=== PATIENT | male | born 1940 | race Caucasian/White ===

== ENCOUNTER 2025-09-27 05:49 | Inpatient (IN) | payer MEDICARE, OTHER ==
[2025-09-27] VITALS (14 sets, daily range): BP systolic 98–152; BP diastolic 62–86; TEMP 98.2–98.6; O2SAT 85–98
[~2025-09-27] VITALS: Ht 167.6 cm; Wt 76.2 kg
[2025-09-27 06:36] LABS: PLATELET COUNT (AUTO) 146 K/uL (150-450); RED CELL DISTRIBUTION WIDTH 14.6 % (11.5-15.0); WHITE BLOOD COUNT (AUTO) 18.0 K/uL (4.3-11.0)
[2025-09-27 06:45] LABS: CALCIUM, SERUM 9.3 mg/dL (8.5-10.1); CREATININE 2.5 mg/dL (0.6-1.3); SODIUM SERUM 134 mmol/L (136-145); UREA NITROGEN, BLOOD 65 mg/dL (7-18)
[2025-09-27 07:07] LABS: ASPARTATE AMINOTRANSFERASE 773 U/L (15-37); NT-PRO BNP 8625 pg/mL (0-125); TOTAL PROTEIN, SERUM 7.9 g/dL (6.4-8.2)
[2025-09-27] MEDS: PIPERACILLIN /TAZOBACTAM 3.375 G in IV D5W 50 ML IV ONE (07:30)
[2025-09-27] MEDS: SODIUM POLYSTYRENE SULFONATE 15 G/60 ML BOTTLE PO ONE (07:30)
[2025-09-27] MEDS: ASPIRIN 325 MG TABLET PO ONE (07:30)
[2025-09-27] MEDS: SODIUM BICARBONATE SYR 50 MEQ/50 ML DISP.SYRIN IV ONE (07:30)
[2025-09-27] MEDS: IV NS 0.9% 500 ML BAG IV ONE (07:30)
[2025-09-27] MEDS ORDERED: SODIUM BICARBONATE SYR 50 MEQ/50 ML DISP.SYRIN ONE (07:36)
[2025-09-27] MEDS ORDERED: SODIUM POLYSTYRENE SULFONATE 15 G/60 ML BOTTLE ONE (07:36)
[2025-09-27] MEDS ORDERED: ASCO100058 PO (07:38)
[2025-09-27] MEDS ORDERED: MULT-213 PO (07:38)
[2025-09-27] MEDS: ALBUTEROL FS 2.5 MG/3 ML VIAL.NEB NEB ONE (07:42)
[2025-09-27] MEDS ORDERED: ALBUTEROL FS 2.5 MG/3 ML VIAL.NEB ONE (07:45)
[2025-09-27] MEDS: VANCOMYCIN 1 GM in IV D5W 250 ML IV ONE (07:45)
[2025-09-27 08:00] LABS: INR 1.5 (0.91-1.10)
[2025-09-27 08:04] LABS: LACTIC ACID 4.3 mmol/L (0.4-2.0)
[2025-09-27] MEDS: ONDANSETRON HCL/PF - ER 4 MG/2 ML VIAL IV ONE (08:49)
[2025-09-27] MEDS ORDERED: ONDANSETRON HCL/PF 4 MG/2 ML VIAL ONE (08:49)
[2025-09-27 09:37] LABS: RED BLOOD CELL COUNT(AUTO) 4.66 MIL/uL (4.5-6.0)
[2025-09-27] MEDS ORDERED: Z GUARD REMEDY 4 OZ OINT TP PRN (10:00)
[2025-09-27] MEDS ORDERED: MAG HYDROX/AL HYDROX/SIMETH 30 ML UDC PO PRN (10:00)
[2025-09-27] MEDS ORDERED: MAGNESIUM HYDROXIDE 30 ML UDC PO PRN (10:00)
[2025-09-27] MEDS ORDERED: DOSING PER PHARMACY-ZOSYN IV 1 EA EA XX PRN (10:00)
[2025-09-27] MEDS ORDERED: DEXTROSE 50%-WATER 50 ML DISP.SYRIN IV PRN (10:00)
[2025-09-27] MEDS ORDERED: ACETAMINOPHEN 325 MG TABLET PO PRN (10:00)
[2025-09-27] MEDS ORDERED: ONDANSETRON HCL/PF 4 MG/2 ML VIAL IVP PRN (10:00)
[2025-09-27] MEDS: ASPIRIN 81 MG TAB.CHEW PO SCH (11:33)
[2025-09-27] MEDS: BUMETANIDE INJ 8 MG in IV NS 0.9% 48 ML IV ONE (11:34)
[2025-09-27] MEDS: PANTOPRAZOLE 40 MG TABLET.DR PO SCH (11:34)
[2025-09-27] MEDS: HEPARIN SODIUM, PORCINE 5000 UNITS/1 ML VIAL IV ONE (12:06)
[2025-09-27] MEDS: HEPARIN INFUSION/D5W 500 ML IV PRN (12:07)
[2025-09-27] MEDS: BLOOD SUGAR DIAGNOSTIC 1 EACH STRIP IN SCH (12:29)
[2025-09-27 12:33] LABS: CALCIUM, SERUM 9.0 mg/dL (8.5-10.1); CREATININE 2.3 mg/dL (0.6-1.3); SODIUM SERUM 135.0 mmol/L (136-145); UREA NITROGEN, BLOOD 67.0 mg/dL (7-18)
[2025-09-27] MEDS: ZOSYN IVPB 2.25 G in IV D5W 50ml IV SCH (13:20)
[2025-09-27] MEDS: INSULIN REGULAR, HUMAN 100 UNIT/ML 3 ML VIAL SQ PRN (21:48)
[2025-09-27 22:12] LABS: APPEARANCE,URINE CLEAR (CLEAR)
[2025-09-27 22:13] LABS: BLOOD, URINE TRACE Ery/uL (NEGATIVE); LEUKOCYTE ESTERASE ,URINE NEGATIVE (NEGATIVE); NITRITE, URINE NEGATIVE (NEGATIVE); UGLUCOSE NEGATIVE (NEGATIVE)
[2025-09-27 22:16] LABS: ADD URINE CULTURE NO; CREATININE, URINE 38.8 MG/DL (30.0-125.0); SQUAMOUS EPITHELIAL CELL,UR 0-2 /HPF (None Seen); URINE SODIUM, RANDOM 53.0 mmol/l (40-220); URINE TOTAL PROTEIN 6.1 mg/dL (0-11.9)
[2025-09-27 23:27] LABS: EOSINOPHIL,URINE None Seen
[2025-09-28] VITALS (24 sets, daily range): BP systolic 91–148; BP diastolic 47–123; TEMP 96.5–98; O2SAT 86–98
[2025-09-28 02:15] LABS: PLATELET COUNT (AUTO) 135 K/uL (150-450); RED BLOOD CELL COUNT(AUTO) 4.45 MIL/uL (4.5-6.0); RED CELL DISTRIBUTION WIDTH 14.7 % (11.5-15.0); WHITE BLOOD COUNT (AUTO) 15.6 K/uL (4.3-11.0)
[2025-09-28 02:34] LABS: ASPARTATE AMINOTRANSFERASE 493 U/L (15-37); CALCIUM, SERUM 8.9 mg/dL (8.5-10.1); CREATINE KINASE, TOTAL 830 U/L (39-308); CREATININE 1.9 mg/dL (0.6-1.3); PHOSPHORUS 4.7 mg/dL (2.5-4.9); SODIUM SERUM 134 mmol/L (136-145); TOTAL PROTEIN, SERUM 7.2 g/dL (6.4-8.2); UREA NITROGEN, BLOOD 65 mg/dL (7-18)
[2025-09-28] MEDS: FUROSEMIDE 100 MG/10 ML VIAL IV SCH (08:11)
[2025-09-28] MEDS: METOLAZONE 2.5 MG TABLET PO SCH (08:11)
[2025-09-28] MEDS: PIPERACILLIN /TAZOBACTAM 3.375 G in IV D5W 100 ML IV SCH (09:25)
[2025-09-28] MEDS: AMMONIUM LACTATE 227 GM BOTTLE TP SCH (17:17)
[2025-09-29] VITALS (46 sets, daily range): BP systolic 44–223; BP diastolic 11–172; TEMP 97.7–98; O2SAT 74–99
[2025-09-29 04:28] LABS: PLATELET COUNT (AUTO) 123 K/uL (150-450); RED BLOOD CELL COUNT(AUTO) 4.26 MIL/uL (4.5-6.0); RED CELL DISTRIBUTION WIDTH 14.3 % (11.5-15.0); WHITE BLOOD COUNT (AUTO) 12.5 K/uL (4.3-11.0)
[2025-09-29 04:41] LABS: ASPARTATE AMINOTRANSFERASE 301 U/L (15-37); CALCIUM, SERUM 9.0 mg/dL (8.5-10.1); CREATININE 1.7 mg/dL (0.6-1.3); PHOSPHORUS 4.5 mg/dL (2.5-4.9); TOTAL PROTEIN, SERUM 7.0 g/dL (6.4-8.2); UREA NITROGEN, BLOOD 68 mg/dL (7-18)
[2025-09-29 05:01] LABS: SODIUM SERUM 132 mmol/L (136-145)
[2025-09-29 05:13] LABS: PTH, INTACT 82 pg/mL (15-65)
[2025-09-29] MEDS: NOREPINEPHRINE 8MG/250ML RTU 250 ML IV ONE (05:35)
[2025-09-29] MEDS: NOREPINEPHRINE 8 MG in IV NS 0.9% 242 ML IV PRN (05:40)
[2025-09-29] MEDS: POTASSIUM CHLORIDE 20 MEQ TAB.PRT.SR PO SCH (08:08)
[2025-09-29] MEDS: DOBUTamine 500 MG in IV D5W 210 ML IV SCH (09:20)
[2025-09-29] MEDS ORDERED: AMIODARONE 150 MG/3 ML VIAL IV ONE (10:25)
[2025-09-29] MEDS: PROPOFOL 100 ML IV PRN (10:30)
[2025-09-29] MEDS: AMIODARONE 450 MG in IV D5W 241 ML IV PRN (10:49)
[2025-09-29 11:03] LABS: CALCIUM, SERUM 8.7 mg/dL (8.5-10.1); CREATININE 1.9 mg/dL (0.6-1.3); SODIUM SERUM 135.0 mmol/L (136-145); UREA NITROGEN, BLOOD 68.0 mg/dL (7-18)
[2025-09-29 11:24] LABS: ABG BASE EXCESS 4.6 mmol/L (-2.0-3.0); ABG OXYGEN SATURATION 99.9 % (94.0-98.0); ABG PCO2 38.3 mmHg (35.0-48.0); ABG PH 7.484 (7.350-7.450); ABG PO2 540.8 mmHg (83.0-108.0); ABG TOTAL HEMOGLOBIN 14.6 G/dL (13.5-17.5); FRACTIONATED INSPIRED OXYGEN 100.0 %; PEEP,BG 5 cm H2O; SET RATE, BG 16.0; SITE, ABG RIGHT BRACHIAL; VT, ABG 500 mL
[2025-09-29] MEDS: POTASSIUM CL. PREMIX PERIPHER. 50 ML IV SCH (11:43)
[2025-09-29] MEDS ORDERED: Magnesium 1 GM/2 ML VIAL IV ONE (12:19)
[2025-09-29] MEDS ORDERED: EPINEPHRINE (1:10,000) SYRINGE 1 MG/10 ML DISP.SYRIN IVP ONE (12:19)
[2025-10-03 07:10] LABS: *SPE A/G RATIO 0.9 (0.7-1.7); *SPE ALBUMIN 3.1 g/dL (2.9-4.4); *SPE ALPHA-1-GLOBULIN 0.4 g/dL (0.0-0.4); *SPE ALPHA-2-GLOBULIN 0.8 g/dL (0.4-1.0); *SPE BETA GLOBULIN 0.9 g/dL (0.7-1.3); *SPE GLOBULIN, TOTAL 3.5 g/dL (2.2-3.9); *SPE M-SPIKE Not Observed g/dL (Not Observed); *SPE PROTEIN TOTAL 6.6 g/dL (6.0-8.5); *SPEGAMMA GLOBULIN 1.4 g/dL (0.4-1.8)
== END 2025-09-29 14:30 ==
LOC: EDSEX 06:09 → ER 06:09 → ICU 10:33
PROVIDERS: ADMIT Internal Medicine; ATTEND Internal Medicine
PROC: 5A1935Z Respiratory Ventilation, Less than 24 Consecutive Hours (ICD-10-PCS; principal; 2025-09-29)
PROC: 0BH18EZ Insertion of Endotracheal Airway into Trachea, Via Natural or Artificial Opening Endoscopic (ICD-10-PCS; 2025-09-29)
PROC: 5A12012 Performance of Cardiac Output, Single, Manual (ICD-10-PCS; 2025-09-29)
PROC: 5A2204Z Restoration of Cardiac Rhythm, Single (ICD-10-PCS; 2025-09-29)
DX: I13.0 Hypertensive heart and chronic kidney disease with heart failure and stage 1 through stage 4 chronic kidney disease, or unspecified chronic kidney disease (principal); I50.23 Acute on chronic systolic (congestive) heart failure; I21.A1 Myocardial infarction type 2; N17.0 Acute kidney failure with tubular necrosis; E87.20 Acidosis, unspecified; L03.115 Cellulitis of right lower limb; E87.1 Hypo-osmolality and hyponatremia; L03.116 Cellulitis of left lower limb; N18.9 Chronic kidney disease, unspecified; I73.9 Peripheral vascular disease, unspecified; I27.20 Pulmonary hypertension, unspecified; J98.11 Atelectasis; E87.5 Hyperkalemia; E87.6 Hypokalemia; G62.9 Polyneuropathy, unspecified; R53.1 Weakness; R74.01 Elevation of levels of liver transaminase levels; K82.8 Other specified diseases of gallbladder; S81.802A Unspecified open wound, left lower leg, initial encounter; X58.XXXA Exposure to other specified factors, initial encounter; Y93.9 Activity, unspecified; Y92.009 Unspecified place in unspecified non-institutional (private) residence as the place of occurrence of the external cause; I49.8 Other specified cardiac arrhythmias; D72.829 Elevated white blood cell count, unspecified
CPT/HCPCS: 36415; 36600; 71045-TC; 76700-TC; 80048-TC; 80053-TC; 80076-TC; 81001; 82550-TC; 82553; 82570-TC; 82803-TC; 82962-TC; 83605-TC; 83690-TC; 83735-TC; 83880; 83970; 84100-TC; 84155; 84165; 84300-TC; 84484-TC; 85025-TC; 85027-TC; 85730-TC; 87040-TC; 87081-TC; 87086-TC; 93307-TC; 94002; 94799-TC; A4223; A6213; G0378; J0169; J0282; J1250; J1644; J1815; J1938; J2405; J2543; J3373; J3475; J3480; J3490; J7050; J7060